=== PATIENT | female | born 1980 | race Caucasian/White ===

== ENCOUNTER → 2017-04-03 | Outpatient (CLI) | payer OTHER | END | disposition home or self-care (01) | LOC: LABWHC1 14:27 | PROVIDERS: ATTEND Midwife | DX: N91.2 Amenorrhea, unspecified (principal) | CPT/HCPCS: 36415; 84702 ==

== ENCOUNTER → 2022-03-21 | Outpatient (CLI) | payer OTHER ==
--- NOTE | 2022-03-21 14:34 | XR ---
EXAMINATION TYPE: XR foot limited LT DATE OF EXAM: 03/21/2022 2:09 PM INDICATION: Patient age:Female; 41 years old; Reason for study: M79.672; [facility]. COMPARISON: None TECHNIQUE: The left foot was examined in the AP, oblique, and lateral projections. FINDINGS: No evidence of any acute osseous pathology. No evidence of soft tissue swelling. Joints are preserve d. Incidental note is made of symphalangism of the fifth distal interphalangeal joint. Accessory ossi cles are present. Minimal calcaneal plantar spurring present IMPRESSION: No evidence of acute fracture.
== END | disposition home or self-care (01) ==
LOC: RADXRMAIN 13:56
PROVIDERS: ATTEND Nurse Practitioner Family
DX: M79.672 Pain in left foot (principal)

== ENCOUNTER → 2022-05-09 | Outpatient (CLI) | payer OTHER ==
[2022-05-09 14:31] VITALS: BP 156/104; PULSE 109; TEMP 97.9; BMI 37.2
--- NOTE | 2022-05-09 14:57 | P.HPBAR ---
Bariatric H&P - History & Physicial H&P Date: 05/09/22 History & Physicial: Visit/CC: new patient Patient initial contact: Initial weight: Initial weight in pounds: Height: 5 ft 5.75 in Initial BMI: Last weight: Current weight: 103.873 kg Current weight in pounds: 229.00 Current BMI: 37.2 [place] body weight (based on NIH guidelines): 58.4 kg Excess body weight loss: The patient is a 42 year-old F who presents for Bariatric Assessment. DATE OF SERVICE: 05/09/2022 REASON FOR CONSULTATION: Morbid obesity HISTORY OF PRESENT ILLNESS: Sherry Cohen is a 42-year-old female who comes with lifelong morbid obesity. She had the sleeve gastrectomy. Her sleeve was done by Mitch Hector. She denies gastroesophageal reflux disease prior to her sleeve surgery. She has occasional reflux. She reports occasional dysphagia with food. She was on Adipex in the past. She tried Saxenda for weight lose and it did not help. She reports Yo-yo dieting. She is not on any blood pressure medications. She never had upper scope. She presents due to weight gain and gastroesophageal reflux disease. Her highest weight was 226 pounds up to 260 pounds. Lowest after procedure was 180 to 186 pounds. She presents for management of weight regain and gastroesophageal reflux disease. At height of 5 feet 5.75 inches, her ideal body weight is 149 pounds. Her highest weight was 260 pounds, BMI 42.4. Her lowest after procedure was 180 pounds. She comes in 229 pounds. Her body mass index is 37.2. She has gained 49 pounds. She is 80 pounds overweight. PAST MEDICAL HISTORY: 1. Morbid obesity due to excess calories 2. Body mass index of 42.4, initial 3. Osteoarthritis of the knees. 4. Osteoarthritis of the lower back. 5. Gastroesophageal reflux disease 6. Asthma 7. Left foot plantar fascitis 8. Heel spur PAST SURGICAL HISTORY: 1. Sleeve gastrectomy 2. section 3. Hysterectomy HOME MEDICATIONS: Home Medications Medication Instructions Recorded Confirmed ALPRAZolam [Xanax] 0.5 mg PO DAILY PRN 05/09/22 07/04/22 Dextroamphetamine/Amphetamine 20 mg PO TID 05/09/22 07/04/22 [Adderall] Albuterol Inhaler [Ventolin Hfa 1 - 2 puff INHALATION Q6H PRN 06/13/22 07/04/22 Inhaler] Cetirizine HCl [Zyrtec] 10 mg PO DAILY 06/13/22 07/04/22 Ergocalciferol [Vitamin D2 (1250 1,250 mcg PO TH 06/13/22 07/04/22 Mcg = 60361 Iu)] Fluticasone Nasal [place] [Flonase 1 spray EA NOSTRIL DAILY 06/18/22 07/04/22 Nasal [place]] ALLERGIES: Allergies Allergy/AdvReac Type Severity Reaction Status Date / Time hydrocodone [From Vicodin] Allergy Anaphylaxis Verified 06/18/22 08:17 SOCIAL HISTORY: Past tobacco use. FAMILY HISTORY: No family history of ulcerative colitis disease or Crohn's disease. Family history of morbid obesity. No lupus in the family. No reports of stomach or esophageal cancer. REVIEW OF ORGAN SYSTEMS: CONSTITUTIONAL: At height of 5 feet 5.75 inches, her ideal body weight is 149 pounds. Her highest weight was 260 pounds, BMI 42.4. Her lowest after procedure was 180 pounds. She comes in 229 pounds. Her body mass index is 37.2. She has gained 49 pounds. She is 80 pounds overweight. HEENT: Denies any active troubles with vision or hearing. Has troubles with swallowing. ENDOCRINE: Denies diabetes. No hypothyroidism. CARDIOVASCULAR: Denies past reports of palpitations or heart attacks or chest pain. Denies hypertensive heart disease. RESPIRATORY: Has daytime somnolence. Has asthma. Has chronic obstructive pulmonary disease. GASTROINTESTINAL: Denies any bright red blood per rectum. No diarrhea. No constipation. Denies gastroesophageal reflux disease. GENITOURINARY: Denies bladder urgency. No recent blood in urine MUSCULOSKELETAL: Has lower back pain and joint pain. Has osteoarthritis of the knees. History of bilateral lower extremity edema. NEURO: No headaches. No seizure disorders. PSYCH: Has ADD/ADHD. No suicidal ideation. Has anxiety disorder. RHEUMATOLOGIC: No lupus. No rheumatoid arthritis. HEMATOLOGIC: Denies any abnormal bleeding or bruising. Denies past history of DVTs. Denies blood thinners. SKIN: No rash. No skin cancer. PHYSICAL EXAM: VITAL SIGNS: Height 5 foot 5.75 inches, weight 229 pounds. BMI 37.2 Vital Signs Temp 97.9 F 05/09/22 14:24 Pulse 109 H 05/09/22 14:24 Resp BP 156/104 05/09/22 14:24 Pulse Ox FiO2 GENERAL: Well-developed in no acute distress. HEENT: No scleral icterus. Extraocular movements grossly intact. Hears conversational speech. No nasal drainage. NECK: Supple without lymphadenopathy. CHEST: Nonlabored respirations with equal bilateral excursions. CARDIOVASCULAR: Distal 2+ pulses. Tachycardic. ABDOMEN: Obese, soft, nontender, nondistended. MUSCULOSKELETAL: No clubbing, cyanosis. Gross strength 5/5 distal lower extremities. NEURO: No focal or lateralizing signs. Cranial nerves 2 through 12 grossly within normal limits. PSYCH: Appropriate affect. Alert and oriented to person, place and time. SKIN: Good skin turgor. Well perfused. ASSESSMENT: 1. Morbid obesity due to excess calories 2. Body mass index of 42.4, initial 3. Osteoarthritis of the knees. 4. Osteoarthritis of the lower back. 5. Gastroesophageal reflux disease 6. Asthma 7. Left foot plantar fascitis 8. Heel spur 9. Hypertensive heart disease. 10. Status post sleeve gastrectomy PLAN: 1. She reports complications from her sleeve gastrectomy including dysphagia and gastroesophageal reflux disease. Additional assessment is needed. 2. Alternatives of gastric bypass and hiatal hernia repair pending additional studies are pending. 3. Recommend a bariatric metabolic panel to evaluate for micro- including macronutrient deficiencies. 4. For history of daytime somnolence, recommend evaluation and treatment for sleep apnea. 5. Dietary surveillance and counseling was reviewed. Increased protein intake over 65 grams daily advised. 6. Will need cardiac risk assessment. 7. Recommend medical risk assessment. 8. Psych assessment per insurance guidelines. 9. Recommend upper endoscopy. 10. Recommend 12-lead EKG. 11. Recommend esophagram Thank you for this consultation. Past Medical History Additional Past Medical History / Comment(s): left foot plantar fascitis, tight achilles tendon, small heel spur History of Any Multi-Drug Resistant Organisms: None Reported Past Surgical History: Bariatric Surgery, Section, Hysterectomy Additional Past Surgical History / Comment(s): gastric sleeve 2017 Past Anesthesia/Blood Transfusion Reactions: No Reported Reaction Past Psychological History: ADD/ADHD, Anxiety Smoking Status: Never smoker Past Alcohol Use History: Occasional Past Drug Use History: None Reported Surgical - Exam Vital Signs Temp Pulse BP 97.9 F 109 H 156/104 05/09/22 14:24 05/09/22 14:24 05/09/22 14:24 Bariatric Checklist Checklist: Plan: Checklist: EGD: 1. Hiatal hernia: 2. H. Pylori: HgbA1c: Vitamin D: Smoking: Primary care physician referral: Kathy Arenas NP Psychiatry clearance: Cardiology clearance: Sleep study: Diet journal: VTE risk score: VTE risk level: Rehab needs at discharge:
== END ==
LOC: BARWHC3 13:56
PROVIDERS: ATTEND Surgery Plastic and Reconstructive Surgery
DX: E66.01 Morbid (severe) obesity due to excess calories (principal); J45.909 Unspecified asthma, uncomplicated; K21.9 Gastro-esophageal reflux disease without esophagitis; Z68.37 Body mass index [BMI] 37.0-37.9, adult; Z88.5 Allergy status to narcotic agent
CPT/HCPCS: 99212

== ENCOUNTER 2022-06-18 07:51 | Day surgery (SDC) | payer OTHER ==
[2022-06-13 13:11] VITALS: BMI 37.4
[~2022-06-18 07:51] MED LIST: LACTATED RINGERS 1,000 ML IV SCH
[2022-06-18 08:34] VITALS: RESP 16; TEMP 97.9
--- NOTE | 2022-06-18 08:46 | P.GSHP ---
History of Present Illness H&P Date: 06/18/22 CHIEF COMPLAINT: GERD HISTORY OF PRESENT ILLNESS: The patient is a 42-year-old female who presents reports gastroesophageal reflux disease. Upper endoscopy was offered for further evaluation and management. PAST MEDICAL HISTORY: Please see list. PAST SURGICAL HISTORY: Please see list. MEDICATIONS: Please see list. ALLERGIES: Please see list. SOCIAL HISTORY: No illicit drug use FAMILY HISTORY: No reports of Crohn disease or ulcerative colitis. REVIEW OF ORGAN SYSTEMS: CONSTITUTIONAL: No reports of fevers or chills. GI: Denies any blood in stools or constipation. PHYSICAL EXAM: VITAL SIGNS: Stable GENERAL: Well-developed and pleasant in no acute distress. HEENT: No scleral icterus. Extraocular movements grossly intact. Moist buccal mucosa. NECK: Supple without lymphadenopathy. CHEST: Unlabored respirations. Equal bilateral excursions. CARDIOVASCULAR: Regular rate and rhythm. Distal 2+ pulses. ABDOMEN: Soft, nondistended. MUSCULOSKELETAL: No clubbing, cyanosis, or edema. ASSESSMENT: 1. Gastroesophageal reflux disease PLAN: 1. Recommend proceeding with an upper endoscopy Past Medical History Past Medical History: Asthma, GERD/Reflux Additional Past Medical History / Comment(s): left foot plantar fascitis,lt tight achilles tendon, lt 7small heel spur History of Any Multi-Drug Resistant Organisms: None Reported Past Surgical History: Bariatric Surgery, Section, Hysterectomy Additional Past Surgical History / Comment(s): gastric sleeve 2017 Past Anesthesia/Blood Transfusion Reactions: No Reported Reaction, Motion Sickness, Postoperative Nausea & Vomiting (PONV) Additional Past Anesthesia/Blood Transfusion Reaction / Comment(s): no hx bood transfusion Smoking Status: Never smoker - Past Family History Mother Family Medical History: No Reported History Medications and Allergies Home Medications Medication Instructions Recorded Confirmed Type ALPRAZolam [Xanax] 0.5 mg PO DAILY PRN 05/09/22 06/18/22 History Dextroamphetamine/Amphetamine 20 mg PO TID 05/09/22 06/18/22 History [Adderall] Albuterol Inhaler [Ventolin Hfa 1 - 2 puff INHALATION Q6H PRN 06/13/22 06/18/22 History Inhaler] Cetirizine HCl [Zyrtec] 10 mg PO DAILY 06/13/22 06/18/22 History Ergocalciferol [Vitamin D2 (1250 1,250 mcg PO TH 06/13/22 06/18/22 History Mcg = 96964 Iu)] Fluticasone Nasal [place] [Flonase 1 spray EA NOSTRIL DAILY 06/18/22 06/18/22 History Nasal [place]] Allergies Allergy/AdvReac Type Severity Reaction Status Date / Time hydrocodone [From Vicodin] Allergy Anaphylaxis Verified 06/18/22 08:17 Surgical - Exam Vital Signs Temp Pulse Resp BP Pulse Ox 97.9 F 73 16 121/70 100 06/18/22 08:17 06/18/22 08:17 06/18/22 08:17 06/18/22 08:17 06/18/22 08:17
[2022-06-18] MEDS ORDERED: PROPOFOL 10 MG/ML 20 ML VIAL IV ONE (08:47)
[2022-06-18 09:21] VITALS: BP 113/78; PULSE 73
--- NOTE | 2022-06-18 20:40 | P.PCN ---
Date of Procedure: 06/18/22 Description of Procedure: PREOPERATIVE DIAGNOSIS: Gastroesophageal reflux disease. Status post sleeve gastrectomy. Morbid obesity due to excess calories, BMI 38.5 POSTOPERATIVE DIAGNOSIS: Gastroesophageal reflux disease. Status post sleeve gastrectomy. Morbid obesity due to excess calories, BMI 38.5 Erosive esophagitis, chronic. Diaphragmatic hiatal hernia without obstruction. Chronic superficial gastritis. OPERATION: Esophagogastroduodenoscopy with cold forceps biopsies along the antrum. SURGEON: Monica Hernandez MD ANESTHESIA: MAC. INDICATIONS: The patient is a 42-year-old female who presents with a history of sleeve gastrectomy with gastroesophageal reflux disease. She is over 1 year out from her bariatric procedure. Benefits and risks of the procedure were described. Informed consent was obtained. DESCRIPTION: The patient was brought into the endoscopy suite and laid in the left lateral decubitus position. An Olympus gastroscope was passed along the posterior oropharynx down to the distal esophagus where the squamocolumnar junction was at 37 centimeters from the incisors remarkable for chronic erosive esophagitis, LA grade B without ulceration. The stomach was entered where she had a 3-cm hiatal hernia with a diaphragmatic hiatus found at 40 cm. The sleeve reservoir was within normal limits allowing retroflexion of the scope to view the lower esophageal valve. Chronic gastritis was found along the antrum with cold biopsies obtained. The first through third portion of the duodenum was examined and unremarkable. The scope again had easily retroflexed along the antrum. The stomach was desufflated. The patient tolerated the procedure well. FINDINGS: No acute ulceration found along her sleeve. No corkscrewing sleeve gastrectomy. Squamocolumnar junction at 37 cm from the incisors. Diaphragmatic hiatus at 40 cm. Gastric reservoir with prior history of sleeve gastrectomy within normal limits allowing easy retroflexion of the gastroscope to view the lower esophageal valve. Hiatal hernia 3 cm, fixed. LA grade B erosive esophagitis. No active duodenitis. Chronic gastritis with cold forceps biopsies obtained RECOMMENDATIONS: Upper endoscopy as needed. May benefit from antireflux operation such as hiatal hernia repair Continue with current therapy. Plan - Discharge Summary Discharge Rx Participant: No New Discharge Prescriptions: Continue Cetirizine HCl [Zyrtec] 10 mg PO DAILY Ergocalciferol [Vitamin D2 (1250 Mcg = 46162 Iu)] 1,250 mcg PO TH Dextroamphetamine/Amphetamine [Adderall] 20 mg PO TID ALPRAZolam [Xanax] 0.5 mg PO DAILY PRN PRN Reason: Insomnia Albuterol Inhaler [Ventolin Hfa Inhaler] 1 - 2 puff INHALATION Q6H PRN PRN Reason: sob Fluticasone Nasal [place] [Flonase Nasal [place]] 1 spray EA NOSTRIL DAILY Discharge Medication List ALPRAZolam [Xanax] 0.5 mg PO DAILY PRN 05/09/22 [History] Dextroamphetamine/Amphetamine [Adderall] 20 mg PO TID 05/09/22 [History] Albuterol Inhaler [Ventolin Hfa Inhaler] 1 - 2 puff INHALATION Q6H PRN 06/13/22 [History] Cetirizine HCl [Zyrtec] 10 mg PO DAILY 06/13/22 [History] Ergocalciferol [Vitamin D2 (1250 Mcg = 92308 Iu)] 1,250 mcg PO TH 06/13/22 [History] Fluticasone Nasal [place] [Flonase Nasal [place]] 1 spray EA NOSTRIL DAILY 06/18/22 [History] Follow up [facility]ment(s[facility]Ref[place] [facility] [place] [place] [facility] [place] 07/04/[facility] 3:30 pm Patient Instructions/Handouts: *Surgery [facility] - (Anesthesia) Endoscopy Discharge Instructions, Hiatal Hernia (GEN), Upper Endoscopy (DC) Discharge Disposition: HOME SELF-CARE
== END 2022-06-18 10:18 | disposition home or self-care (01) ==
LOC: ORWHC2ENDO 07:51
PROVIDERS: ATTEND Surgery Plastic and Reconstructive Surgery
DX: K29.50 Unspecified chronic gastritis without bleeding (principal); K21.00 Gastro-esophageal reflux disease with esophagitis, without bleeding; K44.9 Diaphragmatic hernia without obstruction or gangrene; Z98.84 Bariatric surgery status; E66.9 Obesity, unspecified; Z68.38 Body mass index [BMI] 38.0-38.9, adult; J45.909 Unspecified asthma, uncomplicated; Z79.51 Long term (current) use of inhaled steroids; Z87.39 Personal history of other diseases of the musculoskeletal system and connective tissue; Z79.899 Other long term (current) drug therapy; Z88.5 Allergy status to narcotic agent
CPT/HCPCS: 88305; 43239; J2704

== ENCOUNTER → 2022-07-04 | Outpatient (CLI) | payer OTHER ==
[2022-07-04 16:01] VITALS: BP 142/86; PULSE 83; TEMP 99.1; BMI 37.2
--- NOTE | 2022-07-04 16:37 | P.BASOAP ---
Subjective Progress Note Date: 07/04/22 She reports trouble with GERD. She is looking a revision. SHe reports moderate heartburn. Recommend hiatal hernia advised to correct symptoms. Lowest 178 pounds. SHe wants to be lower. Looking for a revision and recommend psych advance. Objective - Vital Signs Vital signs: Vital Signs Temp 99.1 F 07/04/22 15:58 Pulse 83 07/04/22 15:58 Resp BP 142/86 07/04/22 15:58 Pulse Ox FiO2 Intake & Output 07/03/22 07/04/22 07/04/22 18:59 06:59 18:59 Weight 103.873 kg Assessment/Plan Plan: Date: 07/04/22 Initial Weight: Initial BMI: Current Weight: 103.873 kg Current BMI: 37.2 Type of Surgery: Total Volume in Band: Previous Volume: Volume Removed: Volume Added: Band Size:
== END ==
LOC: BARWHC3 15:20
PROVIDERS: ATTEND Surgery Plastic and Reconstructive Surgery
DX: E66.01 Morbid (severe) obesity due to excess calories (principal); Z68.37 Body mass index [BMI] 37.0-37.9, adult; Z88.5 Allergy status to narcotic agent
CPT/HCPCS: 99211

== ENCOUNTER → 2022-08-17 | Outpatient (CLI) | payer OTHER ==
[2022-08-17 19:55] LABS: Blood Urea Nitrogen 19.2 mg/dL (9.0-27.0); Carbon Dioxide 24.9 mmol/L (21.6-31.8); Chloride 106 mmol/L (96-109); Potassium 4.3 mmol/L (3.5-5.5); Sodium 142 mmol/L (135-145)
[2022-08-17 21:36] LABS: HCT 41.3 % (37.2-46.3); HGB 13.3 d/dL (12.0-15.0); MCH 30.7 pg (27.0-32.0); MCHC 32.2 d/dL (32.0-37.0); MCV 95.4 FL (80.0-97.0); Mean Platelet Volume 11.8 FL (9.5-12.2); NRBC Per 100 WBC 0 X 10*3/uL (0.00-0.01); Platelet Count 263 X 10*3/uL (140-440); RBC 4.33 X 10*6/uL (4.10-5.20); RDW 12.4 % (11.5-14.5); WBC 6.58 X 10*3/uL (4.50-10.00)
== END | disposition home or self-care (01) ==
LOC: LABPAT 13:04
PROVIDERS: ATTEND Surgery Plastic and Reconstructive Surgery
DX: Z01.812 Encounter for preprocedural laboratory examination (principal)
CPT/HCPCS: 36415; 80051; 82565; 84520; 85027

== ENCOUNTER 2022-08-20 13:23 | Day surgery (SDC) | payer OTHER ==
--- NOTE | 2022-08-20 07:52 | P.GSHP ---
History of Present Illness H&P Date: 08/20/22 CHIEF COMPLAINT: Paraesophageal hiatal hernia with gastroesophageal reflux disease. HISTORY OF PRESENT ILLNESS: The patient is a 42-year-old female who presents with symptomatic paraesophageal hiatal hernia over one year with gastroesophageal reflux disease. She has completed upper endoscopy workup. Now she presents for surgical intervention. PAST MEDICAL HISTORY: Please see list. PAST SURGICAL HISTORY: Please see list. MEDICATIONS: Please see list. ALLERGIES: Please see list. SOCIAL HISTORY: No illicit drug use FAMILY HISTORY: No reports of Crohn disease or ulcerative colitis. REVIEW OF ORGAN SYSTEMS: CONSTITUTIONAL: No reports of fevers or chills. GI: Denies any blood in stools or constipation. PHYSICAL EXAM: VITAL SIGNS: Stable GENERAL: Well-developed pleasant and in no acute distress. HEENT: No scleral icterus. Extraocular movements grossly intact. Moist buccal mucosa. NECK: Supple without lymphadenopathy. CHEST: Unlabored respirations. Equal bilateral excursions. CARDIOVASCULAR: Regular rate and rhythm. Distal 2+ pulses. ABDOMEN: Soft, nondistended. No peritoneal signs. MUSCULOSKELETAL: No clubbing, cyanosis, or edema. SKIN: Well-perfused. Good skin turgor. REPORTS: Upper endoscopy demonstrates paraesophageal hiatal hernia ASSESSMENT: 1. Diaphragmatic paraesophageal hiatal hernia with severe gastroesophageal reflux disease. PLAN: 1. Recommend proceeding with a robotic paraesophageal hiatal hernia with possible mesh. 2. Benefits and risks of surgical intervention was discussed including possibility of open technique. 3. Inpatient hospitalization recommended of 2 nights 4. DVT prophylaxis. 5. Antibiotic prophylaxis. 6. She has also completed a very low caloric high-protein diet to address underlying hepatomegaly. 7. Non narcotic pain management including abdominal wall block described 8. Blood sugar glucose described. 9. Weight loss management described. 10. She is elevated risk due to pre-existing multiple gastric procedures including a sleeve gastrectomy Past Medical History Past Medical History: Asthma, GERD/Reflux Additional Past Medical History / Comment(s): left foot plantar fascitis,lt tight achilles tendon, lt 7small heel spur History of Any Multi-Drug Resistant Organisms: None Reported Past Surgical History: Bariatric Surgery, Section, Hysterectomy Additional Past Surgical History / Comment(s): EGD ON 06/18/22. gastric sleeve 2017 Past Anesthesia/Blood Transfusion Reactions: No Reported Reaction, Motion Sickness, Postoperative Nausea & Vomiting (PONV) Additional Past Anesthesia/Blood Transfusion Reaction / Comment(s): no hx bood transfusion Past Psychological History: ADD/ADHD, Anxiety Smoking Status: Never smoker Past Alcohol Use History: Occasional Past Drug Use History: None Reported - Past Family History Mother Family Medical History: No Reported History Medications and Allergies Home Medications Medication Instructions Recorded Confirmed Type ALPRAZolam [Xanax] 0.5 mg PO DAILY PRN 05/09/22 08/15/22 History Dextroamphetamine/Amphetamine 20 mg PO TID 05/09/22 08/15/22 History [Adderall] Albuterol Inhaler [Ventolin Hfa 1 - 2 puff INHALATION Q6H PRN 06/13/22 08/15/22 History Inhaler] Cetirizine HCl [Zyrtec] 10 mg PO DAILY 06/13/22 08/15/22 History Ergocalciferol [Vitamin D2 (1250 1,250 mcg PO TH 06/13/22 08/15/22 History Mcg = 83471 Iu)] Fluticasone Nasal [place] [Flonase 1 spray EA NOSTRIL DAILY PRN 06/18/22 08/15/22 History Nasal [place]] Allergies Allergy/AdvReac Type Severity Reaction Status Date / Time hydrocodone [From Vicodin] Allergy Anaphylaxis Verified 08/15/22 13:23 omeprazole Allergy Rapid Verified 08/15/22 13:23 Heart Rate
[~2022-08-20 13:23] MED LIST changes: +CHLORHEXIDINE GLUCONATE 15 ML CUP MUCOUS MEM PRN; +DEXAMETHASONE SOD PHOSPHATE 4 MG/ML 1 ML VIAL IV ONE; +DEXAMETHASONE SOD PHOSPHATE 4 MG/ML 1 ML VIAL IVP STA; +FAMOTIDINE 20 MG TAB PO STA; +HEPARIN SODIUM,PORCINE/PF 5,000 UNIT/0.5 ML SYRINGE SQ PRN; -LACTATED RINGERS 1,000 ML IV SCH; +ONDANSETRON 4 MG/2 ML VIAL IVP ONE; +ONDANSETRON 4 MG/2 ML VIAL IVP STA; +SCOPOLAMINE 1 MG/72 HR PATCH TRANSDERM SCH; +droPERidol 5 MG/2 ML VIAL IVP ONE; +fentaNYL (PF) 50 MCG/ML 2 ML AMP IV PRN
[2022-08-20] MEDS: LACTATED RINGERS 1,000 ML IV SCH (14:10)
[2022-08-20] MEDS ORDERED: SCOPOLAMINE 1 MG/72 HR PATCH TRANSDERM ONE (14:10)
[2022-08-20] MEDS ORDERED: FAMOTIDINE 20 MG/2 ML VIAL IVP ONE (14:54)
[2022-08-20] MEDS ORDERED: MIDAZOLAM 2 MG/2 ML VIAL ONE (15:06)
[2022-08-20] MEDS ORDERED: GLYCOPYRROLATE 0.2 MG/ML 2 ML VIAL ONE (15:06)
[2022-08-20] MEDS ORDERED: PROPOFOL 10 MG/ML 20 ML VIAL IV ONE (15:06)
[2022-08-20] MEDS ORDERED: NEOSTIGMINE 1 MG/ML 10 ML VIAL ONE (15:06)
[2022-08-20] MEDS ORDERED: fentaNYL (PF) 50 MCG/ML 2 ML AMP ONE (15:06)
[2022-08-20] MEDS ORDERED: ROCURONIUM 10 MG/ML (5 ML VIAL) IV ONE (15:06)
[2022-08-20] MEDS ORDERED: SUCCINYLCHOLINE CHLORIDE 200 MG/10 ML VIAL IV ONE (15:06)
[2022-08-20] MEDS ORDERED: diphenhydrAMINE 50 MG/ML 1 ML VIAL ONE (15:06)
[2022-08-20] MEDS ORDERED: LIDOCAINE 2% INJ 20 MG/ML (2 ML VIAL) ONE (15:06)
[2022-08-20] MEDS ORDERED: LIDOCAINE 0.5%-EPI 1:200,000 50 ML VIAL SQ ONE ×2 (15:22→15:39)
[2022-08-20] MEDS ORDERED: LACTATED RINGERS 1,000 ML IV ONE ×2 (16:26)
[2022-08-20] MEDS ORDERED: ONDANSETRON 4 MG/2 ML VIAL IVP ONE (17:27)
[2022-08-20] MEDS ORDERED: droPERidol 5 MG/2 ML VIAL IVP ONE (17:42)
[2022-08-20] MEDS ORDERED: NALOXONE 0.4 MG/ML 1 ML VIAL IV PRN (17:44)
[2022-08-20] MEDS ORDERED: diphenhydrAMINE 50 MG/ML 1 ML VIAL IVP PRN (17:44)
[2022-08-20] MEDS ORDERED: DEXAMETHASONE SOD PHOSPHATE 10 MG/ML 1 ML VIAL IVP STA (17:53)
[2022-08-20] MEDS: KETOROLAC 15 MG/ML 1 ML VIAL IVP SCH ×2 (17:59→23:50)
[2022-08-20] MEDS: ACETAMINOPHEN IV (For NPO) 1,000 MG in EMPTY BAG 1 BAG IVPB SCH ×2 (17:59→23:50)
[2022-08-20] MEDS ORDERED: DEXAMETHASONE SOD PHOSPHATE 4 MG/ML 1 ML VIAL IVP SCH (18:00)
[2022-08-20] MEDS ORDERED: fentaNYL (PF) 50 MCG/ML 2 ML AMP IV ONE ×2 (18:20→18:30)
[2022-08-20] MEDS: ALBUTEROL NEBULIZED 2.5 MG/3 ML INHALATION SCH (19:00)
[2022-08-20] MEDS: ONDANSETRON 4 MG/2 ML VIAL IVP SCH ×2 (19:56→23:52)
[2022-08-20] MEDS: SIMETHICONE 80 MG CHEWABLE PO SCH ×2 (19:56→23:52)
[2022-08-20] MEDS: HYOSCYAMINE ORAL DROPS 1.875 MG/15 ML BOTTLE PO SCH ×2 (19:56→23:52)
[2022-08-20] MEDS: 0.9% NACL WITH KCL 20 MEQ/L 1,000 ML IV SCH (20:06)
[2022-08-20] MEDS: FAMOTIDINE 20 MG/2 ML VIAL IV SCH (20:06)
[2022-08-20] MEDS: DEXAMETHASONE SOD PHOSPHATE 4 MG/ML 1 ML VIAL IVP SCH (23:52)
[2022-08-21] MEDS: 0.9% NACL WITH KCL 20 MEQ/L 1,000 ML IV SCH ×4 (02:35→21:14)
[2022-08-21] MEDS: ONDANSETRON 4 MG/2 ML VIAL IVP SCH ×3 (05:47→18:38)
[2022-08-21] MEDS: DEXAMETHASONE SOD PHOSPHATE 4 MG/ML 1 ML VIAL IVP SCH ×3 (05:47→18:43)
[2022-08-21] MEDS: KETOROLAC 15 MG/ML 1 ML VIAL IVP SCH ×3 (05:47→18:41)
[2022-08-21] MEDS: SIMETHICONE 80 MG CHEWABLE PO SCH ×3 (05:48→21:15)
[2022-08-21] MEDS: HYOSCYAMINE ORAL DROPS 1.875 MG/15 ML BOTTLE PO SCH ×3 (05:48→18:43)
[2022-08-21] MEDS: ACETAMINOPHEN IV (For NPO) 1,000 MG in EMPTY BAG 1 BAG IVPB SCH ×3 (05:48→21:15)
[2022-08-21] MEDS: PATIENT'S OWN (Dextroamphetamine/Amphetamine [Adderall] 20 MG Tablet) PO SCH ×3 (05:49→18:36)
[2022-08-21] MEDS: ALBUTEROL NEBULIZED 2.5 MG/3 ML INHALATION SCH ×4 (07:41→19:17)
[2022-08-21] MEDS: LACTATED RINGERS 1,000 ML IV SCH (08:32)
[2022-08-21] MEDS: FAMOTIDINE 20 MG/2 ML VIAL IV SCH ×2 (08:32→21:16)
[2022-08-21 09:31] LABS: Basophils # (A) 0.02 X 10*3/uL (0.00-0.10); Basophils % (A) 0.2 %; Eosinophils # (A) 0 X 10*3/uL (0.04-0.35); Eosinophils % (A) 0 %; HCT 36.6 % (37.2-46.3); HGB 11.9 d/dL (12.0-15.0); Lymphocytes # (A) 0.52 X 10*3/uL (0.90-5.00); Lymphocytes % (A) 5.9 %; MCH 30.5 pg (27.0-32.0); MCHC 32.5 d/dL (32.0-37.0); MCV 93.8 FL (80.0-97.0); Mean Platelet Volume 11.4 FL (9.5-12.2); Monocytes % (A) 1.1 %; NRBC Per 100 WBC 0 X 10*3/uL (0.00-0.01); Neutrophils # (A) 8.07 X 10*3/uL (1.80-7.70); Neutrophils % (A) 92.5 %; Platelet Count 249 X 10*3/uL (140-440); RDW 12.2 % (11.5-14.5); WBC 8.74 X 10*3/uL (4.50-10.00)
--- NOTE | 2022-08-21 10:22 | FL ---
EXAMINATION TYPE: FL UGI DATE OF EXAM: 08/21/2022 9:46 AM CLINICAL INDICATION:Female, 42 years old with history of Post Op Bariatric Surgery; COMPARISON: None TECHNIQUE: Limited single contrast UGI study is performed with [id number]. A total of 12 seconds of fluoroscopic time was utilized during procedure and 11 images obtained. DAP: Not reported by machine [email or web address] FINDINGS: The stomach demonstrates a postsurgical morphology. No extravasation of contrast identifie d. No evidence of mass or ulcer disease. The duodenal bulb and sweep are unremarkable. IMPRESSION: Postsurgical changes without evidence of contrast extravasation.
[2022-08-21] MEDS ORDERED: ALPRAZolam 0.5 MG TAB PO PRN (12:56)
[2022-08-21 14:23] VITALS: BMI 37.4
--- NOTE | 2022-08-21 15:16 | P.PN ---
Subjective Progress Note Date: 08/21/22 CHIEF COMPLAINT: Paraesophageal hiatal hernia with GERD HISTORY OF PRESENT ILLNESS: Patient is status post robotic-assisted laparoscopic hiatal hernia repair. Patient does complain of pain especially pain into the shoulders. She has had a small amount of flatus. Denies any nausea or vomiting. She is tolerating bariatric clears. Upper GI shows postsurgical changes without evidence of contrast extravasation. Afebrile. WBC is 8.74 hgb 11.9 platelets 249 PHYSICAL EXAM: VITAL SIGNS: Reviewed GENERAL: Well-developed in no acute distress. HEENT: No sclera icterus. Extraocular movements grossly intact. Moist buccal mucosa. Head is atraumatic, normocephalic. Hears conversational speech. No nasal drainage. NECK: Supple without lymphadenopathy. CHEST: Non-labored respirations and equal bilateral excursions. CARDIOVASCULAR: Palpable 2+ radial pulses. ABDOMEN: Soft. Nondistended. MUSCULOSKELETAL: No clubbing or cyanosis. NEUROLOGIC: No focal or lateralizing signs. Cranial nerves II through XII grossly intact. PSYCH: Appropriate affect. Alert and oriented to person, place and time. SKIN: Well perfused. Good skin turgor. ASSESSMENT: 1. Diaphragmatic paraesophageal hiatal hernia with severe gastroesophageal reflux disease. PLAN: -Increase Mylicon chews to 240 mg twice a day -Encourage patient to ambulate -Continue bariatric clear liquid diet -Continue IV fluids -Continue pain management Physician Sheet [employer] Helper note has been reviewed by physician. Signing provider agrees with the documented findings, assessment, and plan of care. Objective - Vital Signs Vital signs: Vital Signs Temp 98.6 F 08/21/22 07:32 Pulse 76 08/21/22 07:42 Resp 18 08/21/22 07:32 BP 125/81 08/21/22 07:32 Pulse Ox 97 08/21/22 07:41 FiO2 Intake & Output 08/20/22 08/21/22 08/21/22 18:59 06:59 18:59 Intake Total 2150 3320 240 Output Total 5 1201 400 Balance 2145 2119 -160 Weight 102 kg Intake: IV 2150 Intake, IV Titration 1800 Amount 0.9% NaCl with KCl 20 Meq 1500 /l 1,000 ml @ 150 mls/hr IV .Q6H40M [facility] Rx#: [id number] ACETAMINOPHEN IV (For NPO 200 ) 1,000 mg In Empty Bag 1 bag @ 400 mls/hr IVPB Q6HR [facility] Rx#:[id number] ceFAZolin 2 gm In Sodium 100 Chloride 0.9% 50 ml @ 100 mls/hr IVPB Q8H [facility] Rx#: [id number] Oral 1520 240 Output: Urine 1201 400 Estimated Blood Loss 5 Other: # Voids 300 - Labs CBC & Chem 7: 08/21/22 06:04 Labs: Abnormal Lab Results - Last 24 Hours (Table) 08/21/22 Range/Units 06:04 RBC 3.90 L (4.10-5.20) X 10*6/uL Hgb 11.9 L (12.0-15.0) d/dL Hct 36.6 L (37.2-46.3) % Neutrophils # 8.07 H (1.80-7.70) X 10*3/uL Lymphocytes # 0.52 L (0.90-5.00) X 10*3/uL Monocytes # 0.10 L (0.20-1.00) X 10*3/uL Eosinophils # 0 L (0.04-0.35) X 10*3/uL
[2022-08-21] MEDS ORDERED: LORazepam 2 MG/ML INJ IV PRN (20:26)
[2022-08-21] MEDS ORDERED: NALOXONE 0.4 MG/ML 1 ML VIAL IV PRN (20:27)
[2022-08-21] MEDS ORDERED: fentaNYL PCA 500 MCG/50 ML BAG IV SCH (20:30)
[2022-08-21 20:52] LABS: Blood Urea Nitrogen 8.7 mg/dL (9.0-27.0); Calcium 8.6 mg/dL (8.7-10.3); Chloride 105 mmol/L (96-109); Magnesium 1.9 mg/dL (1.5-2.4); Phosphorus 2.8 mg/dL (2.4-5.1); Potassium 4.6 mmol/L (3.5-5.5); Sodium 139 mmol/L (135-145)
[2022-08-22] MEDS ORDERED: LORazepam 2 MG/ML INJ ONE (01:00)
[2022-08-22] MEDS ORDERED: KETOROLAC 15 MG/ML 1 ML VIAL ONE (01:00)
[2022-08-22] MEDS ORDERED: DEXAMETHASONE SOD PHOSPHATE 4 MG/ML 1 ML VIAL ONE (01:00)
[2022-08-22] MEDS ORDERED: ONDANSETRON 4 MG/2 ML VIAL ONE (01:00)
[2022-08-22] MEDS: DEXAMETHASONE SOD PHOSPHATE 4 MG/ML 1 ML VIAL IVP SCH ×3 (05:15→12:16)
[2022-08-22] MEDS: KETOROLAC 15 MG/ML 1 ML VIAL IVP SCH ×3 (05:15→12:16)
[2022-08-22] MEDS: HYOSCYAMINE ORAL DROPS 1.875 MG/15 ML BOTTLE PO SCH ×3 (05:15→12:17)
[2022-08-22] MEDS: ONDANSETRON 4 MG/2 ML VIAL IVP SCH ×3 (05:16→12:16)
[2022-08-22] MEDS: PATIENT'S OWN (Dextroamphetamine/Amphetamine [Adderall] 20 MG Tablet) PO SCH ×2 (05:16→12:17)
[2022-08-22] MEDS: ACETAMINOPHEN IV (For NPO) 1,000 MG in EMPTY BAG 1 BAG IVPB SCH ×2 (05:16→08:26)
[2022-08-22] MEDS: 0.9% NACL WITH KCL 20 MEQ/L 1,000 ML IV SCH ×2 (05:32→12:24)
[2022-08-22] MEDS: ALBUTEROL NEBULIZED 2.5 MG/3 ML INHALATION SCH ×2 (07:23→11:25)
[2022-08-22] MEDS ORDERED: bisacodyL 5 MG TABLET.DR PO PRN (08:00)
[2022-08-22 08:18] VITALS: RESP 18
[2022-08-22] MEDS: FAMOTIDINE 20 MG/2 ML VIAL IV SCH (08:30)
[2022-08-22] MEDS: SIMETHICONE 80 MG CHEWABLE PO SCH (08:30)
[2022-08-22] MEDS: LACTATED RINGERS 1,000 ML IV SCH (08:34)
[2022-08-22 13:37] VITALS: BP 138/72; PULSE 69; TEMP 98.2
--- NOTE | 2022-08-22 14:29 | P.DS ---
Providers Date of admission: 08/20/22 17:12 Expected date of discharge: 08/22/22 Attending physician: Monica Hernandez Primary care physician: Daniele Bhandari [facility] Course: Discharge diagnosis 1. Diaphragmatic paraesophageal hiatal hernia with severe gastroesophageal reflux disease. Hospital course This is a 42-year-old female with a paraesophageal hiatal hernia with severe GERD. She is status post robotic-assisted laparoscopic hiatal hernia repair. Her upper GI shows no evidence of contrast extravasation. Her pain is controlled. She is tolerating diet. She has been up and ambulating. She did have a small bowel movement. She is afebrile. She is stable for discharge. Physician [employer] Tester note has been reviewed by physician. Signing provider agrees with the documented findings, assessment, and plan of care. Patient Condition at Discharge: Stable Plan - Discharge Summary Discharge Rx Participant: No New Discharge Prescriptions: New bisacodyL [Dulcolax] 5 mg PO DAILY PRN #10 tab PRN Reason: Constipation Ibuprofen [Motrin] 600 mg PO Q8HR PRN #30 tab PRN Reason: Pain Simethicone 40 mg/0.6 ml Drops [Mylicon Drops] 40 mg PO PCHS PRN #30 ml PRN Reason: Gas Ondansetron Odt [Zofran Odt] 4 mg PO Q8HR PRN #9 tab PRN Reason: Nausea Acetaminophen Tab [Tylenol] 1,000 mg PO Q6HR PRN #30 tablet PRN Reason: Pain Continue Cetirizine HCl [Zyrtec] 10 mg PO DAILY Ergocalciferol [Vitamin D2 (1250 Mcg = 70470 Iu)] 1,250 mcg PO TH Dextroamphetamine/Amphetamine [Adderall] 20 mg PO TID ALPRAZolam [Xanax] 0.5 mg PO DAILY PRN PRN Reason: Insomnia Albuterol Inhaler [Ventolin Hfa Inhaler] 1 - 2 puff INHALATION Q6H PRN PRN Reason: sob Fluticasone Nasal Kimberly [Flonase Nasal Kimberly] 1 spray EA NOSTRIL DAILY PRN PRN Reason: Nasal Congestion Discharge Medication List ALPRAZolam [Xanax] 0.5 mg PO DAILY PRN 05/09/22 [History] Dextroamphetamine/Amphetamine [Adderall] 20 mg PO TID 05/09/22 [History] Albuterol Inhaler [Ventolin Hfa Inhaler] 1 - 2 puff INHALATION Q6H PRN 06/13/22 [History] Cetirizine HCl [Zyrtec] 10 mg PO DAILY 06/13/22 [History] Ergocalciferol [Vitamin D2 (1250 Mcg = 49030 Iu)] 1,250 mcg PO TH 06/13/22 [History] Fluticasone Nasal Kimberly [Flonase Nasal Kimberly] 1 spray EA NOSTRIL DAILY PRN 06/18/22 [History] Acetaminophen Tab [Tylenol] 1,000 mg PO Q6HR PRN #30 tablet 08/22/22 [Rx] Ibuprofen [Motrin] 600 mg PO Q8HR PRN #30 tab 08/22/22 [Rx] Ondansetron Odt [Zofran Odt] 4 mg PO Q8HR PRN #9 tab 08/22/22 [Rx] Simethicone 40 mg/0.6 ml Drops [Mylicon Drops] 40 mg PO PCHS PRN #30 ml 08/22/22 [Rx] bisacodyL [Dulcolax] 5 mg PO DAILY PRN #10 tab 08/22/22 [Rx] Follow up Appointment(s)/Referral(s): [facility] [[facility]-STA[facility]] - 08/29/22 ([facility] will call tomorrow with an appointment time.) Activity/Diet/Wound Care/Special Instructions: Liquid diet only for 2 weeks No lifting over 4 pounds in 4 weeks, May shower No soaking in bath tubs for 2 weeks Please notify your surgeon if you develop nausea and vomiting including new onset of abdominal pain. Please ambulate at all times. Use Simethicone, Gas-X, Tylenol scheduled for the next 24-48 hours for best pain relief. Use ice along incisions for the today to prevent swelling. Please open, cut, crush pills larger than the size of a tic tack No carbonated beverages. No straws. Do not remove scopolamine patch for 3 days, if present Avoiding Gas Avoid drinking through a straw. Do not chew gum or tobacco. These actions cause you to swallow air, which produces excess gas in your stomach. Chew with your mouth closed. Avoid any foods that cause stomach gas and distention. These foods include corn, dried beans, peas, lentils, onions, broccoli, cauliflower and any food from the cabbage family. Avoid carbonated drinks, alcohol, citrus and tomato products. Carbonated drinks (sodas) are not allowed for the first six to eight weeks after surgery. After this time you can try them again in small amounts Clear Liquid Diet The first diet after surgery is the clear liquid diet. It includes the following liquids: Apple juice Cranberry juice Grape juice Chicken broth Beef broth Flavored gelatin (Jell-O) Decaf tea and coffee Caffeinated beverages are permitted based on tolerance [facility] Brazilian ice Full Liquid Diet The full liquid diet contains anything on the clear liquid diet, plus: Milk, soy, rice and almond (no chocolate) Cream of wheat, cream of rice, grits Strained creamed soups (no tomato or broccoli) Vanilla and strawberry-flavored ice cream Sherbet Blended, custard styled or whipped yogurt (plain or vanilla only) Vanilla and butterscotch pudding (no chocolate or coconut) Nutritional drinks including Ensure, Boost, [place] Instant Breakfast (no chocolate-flavored) Note: Dairy products, such as milk, ice cream and pudding, may cause diarrhea in some people just after surgery. You may need to avoid milk products. If so, substitute them with lactose-free beverages, such as soy, rice, Lactaid or almond milks. Discharge Disposition: HOME SELF-CARE
--- NOTE | 2022-09-16 20:11 | P.OP ---
Date of Procedure: 08/20/22 Description of Procedure: SURGEON: RADHA ARREAGA MD PREOPERATIVE DIAGNOSES: 1. Gastroesophageal reflux disease, with erosive esophagitis 2. Paraesophageal hiatal hernia, midline, initial 3. Morbid obesity due to excess calories, BMI of 37.4 4. History of sleeve gastrectomy 5. Asthma 6. Attention deficit hyperactive disorder 7. Generalized anxiety disorder 8. Postoperative nausea or vomiting 9. Motion sickness POSTOPERATIVE DIAGNOSES: 1. Gastroesophageal reflux disease, with erosive esophagitis 2. Paraesophageal hiatal hernia, midline, initial with incarceration, 4 x 4 cm, type III 3. Morbid obesity due to excess calories, BMI of 37.4 4. History of sleeve gastrectomy 5. Asthma 6. Attention deficit hyperactive disorder 7. Generalized anxiety disorder 8. Postoperative nausea or vomiting 9. Motion sickness 10. Endometrial deposits, pelvis OPERATION: 1. Robotic-assisted da Lito Xi laparoscopic reduction and repair of recurrent incarcerated paraesophageal hiatal hernia, 4 x 4 cm, with [place] Biopatch A 8 x 8 cm. 2. Intraoperative esophagogastroscopy ANESTHESIA: General with local anesthetic. ESTIMATED BLOOD LOSS: 5 mL Pathology: None COMPLICATIONS: None. FINDINGS: 1. Sleeve gastrectomy with adhesions at hiatus 2. Intra-abdominal esophageal length over 2 cm obtained 3. Incarcerated upper pole of the stomach within the mediastinum with dissection performed with incision of mediastinal hernia sac, type III paraesophageal hiatal hernia 4. 4 cm paraesophageal incarcerated diaphragmatic hiatal hernia with dissection into the mediastinum 5. [place] Biopatch A onlay mesh placed. INDICATIONS: The patient is a 42-year-old female who presents with epigastric abdominal pain, dysphagia, history of sleeve gastrectomy, gastroesophageal reflux recalcitrant to medical therapy with a symptomatic diaphragmatic hiatal hernia. Preoperative workup including upper endoscopy demonstrated hiatal hernia with erosive esophagitis. Given the severity of her symptoms, she had elected for surgical intervention. Benefits and risks including bleeding, infection, recurrence, dysphagia, injury to the lung, need for further surgery was described at length. Informed consent was obtained. DESCRIPTION: The patient was brought into the operating room and placed in supine position. Preoperatively she had received heparin subcutaneously for DVT prophylaxis. After general induction, the abdomen was prepped and draped in standard sterile fashion. The patient had previously voided prior to coming to the operating room. Ioban draping was placed along the abdomen. A timeout protocol was confirmed with the surgical team, for which the patient's name, procedure to be performed including DVT prophylaxis with bilateral SCDs, and preoperative antibiotics were also confirmed. A robotic da Lito Xi system was prepped and primed. At 15 cm from the xiphoid to just below the umbilicus, proposed port sites were marked with indelible marker along the left axillary line, left mid-clavicular line with each ports were marked 10 cm from each other. A 5 mm 0 degrees laparoscopic trocar entry was performed along the left upper quadrant. The abdomen was insufflated to 15 mmHg pressure was tolerated well. Diagnostic laparoscopy demonstrated no injury to bowel, viscera. Additional adhesions were found along the liver or the sleeve gastrectomy to the liver. Endometrial deposits and pelvis, 4 mm. Next, one 8 mm robotic port was placed along the right upper abdomen. An 8-mm port was were placed along the left lateral abdominal wall. The camera 8-mm port was maintained along the epigastrium. Another 12 mm port was placed along the left upper abdominal wall after exchanging the 5 mm port. Please note that the ports were placed at least 20 cm away from the target anatomy. Care was taken to check that each robotic arm were safely away from collision with the bed or the patient. The patient was repositioned in reverse Trendelenburg position at 21-degrees after lowering the bed. The robot was docked above the left side of the patient. Using a grasper for arm 3, a grasper for arm 1, including vessel sealer for arm 2, the robotic system was docked and primed as described. Instruments were interchanged by the veterinary technician assistant. I had sat at the console. Initial attention was brought to hiatus. Circumferentially the dissection at the hiatus was performed using vessel sealer including blunt dissection. The remnant gastrohepatic ligament was cleaved using a vessel sealer. Next, the phrenoesophageal ligament was mobilized and the distal esophagus was mobilized circumferentially. An incarcerated hernia sac was found into the mediastinum. As a result, dissection into the mediastinum was needed to free the proximal sleeve gastrectomy including the mid to distal esophagus with retained gastric fundus. The left and right crura was identified. Mmobilization of the distal to mid esophagus into the mediastinum was performed. Circumferentially, the hernia sac was incised and brought into the abdominal cavity. Care was taken to avoid any gastrotomy to the incarcerated upper pole of the stomach. The measured defect was measured with a ruler consistent with 4 cm axial length and 4 cm in width. After dissection, the distal esophagus at least 2 cm was brought into the abdominal cavity. Once the hiatus and crura was dissected, 2-0 VLOC nonabsorbable suture was placed as a running suture to re-approximate the diaphragmatic hiatus posteriorly. To buttress the repair, a [place] Biopatch A was prepared along the back table and cut in a half west-hole fashion as to reinforce the repair as an underlay. The mesh was resized posteriorly placed along the crural repair and tagged using 2- 0 VLOC. I went to the head of the bed to perform intraoperative esophagogastroduodenoscopy. An Olympus gastroscope was passed through posterior oropharynx, where the squamocolumnar junction was below the hiatus. The hiatus repair was confirmed from the incisors. The stomach was entered. The stomach had been desufflated. No evidence of leaks were found or mucosal defects of the esophagus or stomach. This concluded the endoscopic portion of the case. The robot was undocked from the patient. I re-scrubbed into the case. All instruments and pneumoperitoneum were evacuated from the abdominal cavity. The incisions were cleansed with dilute hydrogen peroxide with saline solution. Incisions were reapproximated using 4-0 Monocryl in an interrupted subcuticular fashion. The 12-mm port site fascial defect was less than 8 mm in size. Exofin was applied to the skin. Local anesthetic was infiltrated in all wounds for postop analgesia. Multiple intra-abdominal films were obtained. At the end of the procedure, needle, sponge, and instrument count was verified correct by the nursing surgical services director. The patient had tolerated the procedure well and was taken to the postanesthesia unit in stable condition. Intraoperative films were reviewed with the patient's family who were pleased with the level of care.
== END 2022-08-22 15:07 | disposition home or self-care (01) ==
LOC: OR 13:23 → 5NMEDONC 17:12 → INTOOBSV 17:12 → UNDOADMOB 17:12 → UNDODISOB 08-22 15:07 → OR 08-22 15:07
PROVIDERS: ATTEND Surgery Plastic and Reconstructive Surgery
DX: K44.9 Diaphragmatic hernia without obstruction or gangrene (principal); J45.909 Unspecified asthma, uncomplicated; K21.9 Gastro-esophageal reflux disease without esophagitis; E66.01 Morbid (severe) obesity due to excess calories; K44.0 Diaphragmatic hernia with obstruction, without gangrene; F90.9 Attention-deficit hyperactivity disorder, unspecified type; F41.1 Generalized anxiety disorder; Z98.890 Other specified postprocedural states; Z79.899 Other long term (current) drug therapy; Z98.84 Bariatric surgery status; Z68.37 Body mass index [BMI] 37.0-37.9, adult
CPT/HCPCS: 94640 ×3; 94760; 97161; 97165; 80051; 82310; 82565; 83735; 84100; 84520; 85025; 74240; 43281; C1781; J2250; J0330; J2060; J1200; J1100 ×3; J2710; J0690 ×2; J2405 ×3; J3010; J0131 ×3; J1885 ×3; J2704; Q9967; J1790; J1644; J2001